=== PATIENT | male | born 1945 | race Caucasian/White ===

== ENCOUNTER 2021-03-22 14:17 | Emergency (ER) | payer OTHER ==
[2021-03-22 14:23] VITALS: BP 149/65; TEMP 98.4; BMI 26.9
[2021-03-22] MEDS ORDERED: DIPHTH,PERTUSS(ACELL),TET 0.5 ML DISP.SYRIN IM ONE ×2 (14:56→14:57)
== END 2021-03-22 15:24 | disposition home or self-care (01) ==
LOC: JERFT 14:17
PROC: 0HQGXZZ Repair Left Hand Skin, External Approach (ICD-10-PCS; principal; 2021-03-22)
PROC: 3E0234Z Introduction of Serum, Toxoid and Vaccine into Muscle, Percutaneous Approach (ICD-10-PCS; 2021-03-22)
DX: S61.412A Laceration without foreign body of left hand, initial encounter (principal)
CPT/HCPCS: 90471; 90715; 99284-25

== ENCOUNTER 2021-03-29 10:41 | Emergency (ER) | payer OTHER ==
[2021-03-29 10:54] VITALS: BP 139/72; PULSE 70; TEMP 98.5; BMI 29.7
== END 2021-03-29 11:12 | disposition home or self-care (01) ==
LOC: JERFT 10:41
DX: Z48.02 Encounter for removal of sutures (principal)
CPT/HCPCS: 99281-25

== ENCOUNTER 2021-04-01 09:56 | Emergency (ER) | payer OTHER ==
[2021-04-01 10:01] VITALS: BP 164/74; PULSE 61; TEMP 98.2; BMI 30.1
== END 2021-04-01 10:38 | disposition home or self-care (01) ==
LOC: JERFT 09:56
DX: Z48.02 Encounter for removal of sutures (principal)
CPT/HCPCS: 99281-25

== ENCOUNTER 2021-12-23 19:43 | Emergency (ER) | payer OTHER ==
[2021-12-23 20:10] VITALS: BP 166/66; PULSE 74; TEMP 98.6; BMI 28.0
[2021-12-23] MEDS ORDERED: METHOCARBAMOL 500 MG TABLET PO ONE (20:25)
[2021-12-23] MEDS ORDERED: KETOROLAC TROMETHAMINE 15 MG/ML VIAL IM ONE (20:25)
[2021-12-23] MEDS ORDERED: ACETAMINOPHEN 500 MG TABLET (FP) PO ONE (20:27)
[2021-12-23] MEDS ORDERED: ACETAMINOPHEN 500 MG TABLET (FP) ONE (20:30)
[2021-12-23] MEDS ORDERED: METHOCARBAMOL 500 MG TABLET ONE (20:30)
== END 2021-12-23 21:01 | disposition home or self-care (01) ==
LOC: JERFT 19:43 → JER 19:43 → JERFT 21:01
PROC: 3E0233Z Introduction of Anti-inflammatory into Muscle, Percutaneous Approach (ICD-10-PCS; principal; 2021-12-23)
DX: M62.830 Muscle spasm of back (principal)
CPT/HCPCS: 96372; 99283-25

== ENCOUNTER 2021-12-30 09:10 | Emergency (ER) | payer OTHER ==
[2021-12-30 09:19] VITALS: TEMP 98.2; BMI 28.8
[2021-12-30] MEDS ORDERED: KETOROLAC TROMETHAMINE 30 MG/1 ML VIAL IM ONE (10:03)
[2021-12-30] MEDS ORDERED: morphine CARPU-JECT 4 MG/1 ML DISP.SYRIN IVPUSH ONE (10:05)
[2021-12-30] MEDS ORDERED: morphine SULFATE 4 MG/ML VIAL ONE (10:09)
[2021-12-30 11:04] LABS: PH,URINE 6.5 (5.0-8.0); URINE APPEARANCE CLEAR; URINE BILIRUBIN NEGATIVE (NEGATIVE); URINE COLOR YELLOW; URINE GLUCOSE (UA) 3+ (NEGATIVE); URINE KETONE NEGATIVE (NEGATIVE); URINE LEUK ESTERASE NEGATIVE (NEGATIVE); URINE NITRITE NEGATIVE (NEGATIVE); URINE PROTEIN NEGATIVE (NEGATIVE); URINE UROBILINOGEN 0.2 mg/dL (0.2-1.0)
[2021-12-30 12:26] VITALS: BP 127/69; PULSE 60
== END 2021-12-30 12:31 | disposition home or self-care (01) ==
LOC: JER 09:10
PROC: 3E033NZ Introduction of Analgesics, Hypnotics, Sedatives into Peripheral Vein, Percutaneous Approach (ICD-10-PCS; principal; 2021-12-30)
DX: M54.50 Low back pain, unspecified (principal); E11.9 Type 2 diabetes mellitus without complications
CPT/HCPCS: 72100-TC-FY; 81003; 82962; 87086; 99284-25